=== PATIENT | female | born 2000 | race American Indian/Alaskan Native ===

== ENCOUNTER 2020-12-27 18:08 | Emergency (ER) | payer OTHER, SELFPAY ==
[2020-12-27 18:16] VITALS: BP 145/64; PULSE 91; RESP 14; TEMP 36.3; O2SAT 100; BMI 38.9
--- NOTE | 2020-12-27 18:19 | DI.US.S_ITS ---
PROCEDURE: US PELVIC COMPLETE INDICATIONS: 5 WEEKS , BLEEDING TECHNIQUE: Real-time scanning was performed of the pelvic organs, with image documentation. Additional endovaginal scanning was necessary due to incomplete visualization of the adnexal and endometrial structures by transabdominal scanning. COMPARISON: None. FINDINGS: Uterus: Uterus is normal in size at 7.8 x 5.4 x 4.3 cm. The endometrium measures 18.2 mm in combined thickness. There is no discrete uterine fibroid. Diffusely thickened endometrium is seen without discrete intrauterine gestational sac or endometrial mass. Ovaries: Right ovary measures 3 x 2.2 x 2 cm in size. Left ovary measures 2.4 x 1.9 x 1.9 cm in size. 1 x 0.9 x 0.8 cm corpus luteum is noted in right ovary. Simple cysts are noted in left ovary measures 1.6 x 1.4 x 1.3 cm and 0.7 x 0.5 x 0.6 cm in size. Other: Small amount of free fluid is seen in left adnexa. Physiologic amount of free fluid is seen in posterior cul-de-sac. IMPRESSION: 1. Thickened endometrium without discrete intrauterine gestational sac or endometrial mass. Finding may represent spontaneous versus very early gestation. Follow-up with serial beta HCG level and follow-up pelvic ultrasound is recommended for evaluation of viability. 2. Small amount of fluid is seen in left adnexa and posterior cul-de-sac. 3. Possible corpus luteum in right ovary. Simple cysts in left ovary as above. No definite ectopic gestational sac. Dictated by: Tyson Scott M.D. on 12/27/2020 at 20:53 Approved by: Tyson Scott M.D. on 12/27/2020 at 20:57
[2020-12-27 18:44] LABS: Add Manual Diff / Slide Review NO; Basophils Absolute Auto 0 /uL (0-100); Basophils Percent Auto 0.5 % (0-2); Eosinophils Absolute Auto 300 /uL (0-450); Eosinophils Percent Auto 3.8 % (2-4); Hematocrit 32.3 % (36-46); Hemoglobin 9.9 g/dL (12.0-16.0); Lymphocytes Absolute Auto 2700 /uL (1100-4500); Lymphocytes Percent Auto 39.7 % (25-40); Mean Corpuscular HGB Conc 30.6 % (30-36); Mean Corpuscular Hemoglobin 20.2 PG (26-34); Mean Corpuscular Volume 65.8 fL (80-100); Monocytes Absolute Auto 700 /uL (0-900); Monocytes Percent Auto 9.8 % (3-14); Neutrophils Absolute Auto 3100 /uL (1500-7000); Neutrophils Percent Auto 46.2 % (50-75); Platelet Count 314 X10^3/uL (150-400); Red Cell Distribution Width 18.7 % (11.6-14.8); White Blood Cell Count 6.7 X10^3/uL (4.5-11.0)
[2020-12-27 19:00] LABS: Alanine Aminotransferase 23 IU/L (<35); Albumin 4.2 g/dL (3.5-5.0); Albumin Globulin Ratio 1.1 (1.0-2.8); Alkaline Phosphatase 80 U/L (38-126); Aspartate Aminotransferase 27 IU/L (14-36); Bilirubin Total 0.1 mg/dL (0.2-1.3); Blood Urea Nitrogen 9 mg/dL (7-17); Calcium 9.2 mg/dL (8.4-10.2); Carbon Dioxide 25 mmol/L (22-32); Chloride 108 mmol/L (98-107); Estimated Glomerular Filt Rate > 60.0 mL/min (>60); Globulin 3.7 g/dL (1.7-4.1); Glucose 89 mg/dL (70-100); HEMOLYSIS < 15 (0-50); Potassium 3.9 mmol/L (3.4-5.1); Sodium 140 mmol/L (137-145); Total Protein 7.9 g/dL (6.3-8.2)
[2020-12-27 19:17] LABS: HCG Quantitative /Beta subunit 95.1 mIU/mL
[2020-12-27 19:21] LABS: Microcytosis 2+; Ovalocytes 1+; Platelet Estimate Adequate on smear; Poikilocytosis 1+
[2020-12-27 19:22] LABS: Anisocytosis 1+; Hypochromasia 2+
--- NOTE | 2020-12-27 20:34 | ED.FEMALEGU ---
HPI - Female Genitourinary General Chief complaint: Vaginal Bleeding Stated complaint: 5 WKS BLEEDING SPOTTING Time Seen by Provider: 12/27/20 19:20 Source: patient Mode of arrival: Ambulatory Limitations: no limitations History of Present Illness HPI Narrative: 20F nonsmoker without medical history presents with the chief complaint of minimal vaginal spotting today. She denies pain. She is at 5 weeks. Her date is suggested by LMP. She was seen by the [facility] who confirmed . She is not dizzy, weak, or lightheaded. She's had no dysuria, frequency, or urgency. She's had no fever or chills. She denies discharge. MD Complaint: vaginal bleeding Onset (ago): hour(s) Severity: mild Vaginal discharge: dark blood Patient : Yes Associated symptoms: denies other symptoms Related Data Allergies Allergy/AdvReac Type Severity Reaction Status Date / Time amoxicillin Allergy Verified 12/27/20 18:16 Review of Systems Constitutional Constitutional: Denies chills, Denies fatigue, Denies fever(s), Denies frequent falls, Denies lethargy and Denies weakness Eyes Eyes: Denies change in vision, Denies eye discharge, Denies irritation and Denies loss of vision ENT Ears, Nose, Mouth, and Throat: Denies change in voice, Denies dizziness, Denies neck pain, Denies sore throat and Denies throat swelling Cardiovascular Cardiovascular: Denies chest pain, Denies irregular heart rhythm, Denies lightheadedness, Denies palpitations, Denies dyspnea, Denies dyspnea on exertion and Denies orthopnea Respiratory Respiratory: Denies cough, Denies dyspnea, Denies dyspnea on exertion and Denies wheezing Gastrointestinal Gastrointestinal: Denies abdominal pain, Denies change in bowel habits, Denies diarrhea, Denies nausea and Denies vomiting Genitourinary Genitourinary: Reports abnormal vaginal bleeding Musculoskeletal Musculoskeletal: Denies neck pain and Denies numbness Integumentary/Breasts Skin/Breast: Denies pruritus, Denies erythema, Denies rash and Denies wounds Neurologic Neurologic: Denies behavioral changes, Denies confusion, Denies dizziness, Denies frequent falls, Denies loss of vision, Denies numbness and Denies weakness Psychiatric Psychiatric: Denies anxiety, Denies behavioral changes, Denies confusion, Denies depression, Denies homicidal ideation and Denies suicidal ideation Endocrine Endocrine: Denies fatigue, Denies flushing and Denies palpitations Hematologic/Lymphatic Hematologic/Lymphatic: Denies easy bruising Allergic/Immunologic Allergic/Immunologic: Denies urticaria, Denies throat swelling and Denies wheezing Patient History alcohol intake frequency: holidays/special occasions only Substance Use Type: does not use Exam Narrative Exam Narrative: GENERAL: [20] year old patient appears stated age. Well-nourished, well-developed patient, in mild distress. HEAD: Atraumatic. Normocephalic. EYES: Pupils equal round and reactive. Extraocular motions intact. No scleral icterus. No injection or drainage. ENT: Nose without bleeding, purulent drainage. Throat without erythema, tonsillar hypertrophy or exudate. Airway patent. NECK: Trachea midline. Non tender CARDIOVASCULAR: Regular rate and rhythm without murmurs, gallops, or rubs. RESPIRATORY: Clear to auscultation. Breath sounds equal bilaterally. No wheezes, rales, or rhonchi. GASTROINTESTINAL: Abdomen soft, non-tender, nondistended. EXTREMITIES: No edema or joint tenderness. BACK: Nontender without deformity or crepitance. No flank tenderness. NEURO: AOx3. SKIN: No rash or erythema of visible areas Initial Vital Signs Initial Vital Signs: Vital Signs Temperature 97.4 F L 12/27/20 18:16 Pulse Rate 91 H 12/27/20 18:16 Respiratory Rate 14 12/27/20 18:16 Blood Pressure 145/64 H 12/27/20 18:16 Pulse Oximetry 100 12/27/20 18:16 Course Orders Ordered: ED Orders 12/27/20 18:19 US pelvic complete Stat 12/27/20 18:31 ABO RH Type Stat Complete Blood Count AUTO DIFF Stat Comprehensive Metabolic Panel Stat HCG Quantitative /Beta subunit Stat Vital Signs Vital signs: Vital Signs - 8 hr 12/27/20 20:40 Blood Pressure 123/58 L MDM - Female Genitourinary Lab Data Result diagrams: 12/27/20 18:31 12/27/20 18:31 Labs: Lab Results 12/27/20 12/27/20 12/27/20 Range/Units 18:31 18:31 18:31 WBC 6.7 (4.5-11.0) X10^3/uL RBC 4.90 (4.0-5.2) X10^6/uL Hgb 9.9 L (12.0-16.0) g/dL Hct 32.3 L (36-46) % MCV 65.8 L (80-100) fL MCH 20.2 L (26-34) PG MCHC 30.6 (30-36) % RDW 18.7 H (11.6-14.8) % Plt Count 314 (150-400) X10^3/uL Neut % (Auto) 46.2 L (50-75) % Lymph % (Auto) 39.7 (25-40) % [place] % (Auto) 9.8 (3-14) % Eos % (Auto) 3.8 (2-4) % Baso % (Auto) 0.5 (0-2) % Neut # (Auto) 3100 (0007-1129) /uL Lymph # (Auto) 2700 (1811-3958) /uL [place] # (Auto) 700 (0-900) /uL Eos # (Auto) 300 (0-450) /uL Baso # (Auto) 0 (0-100) /uL Platelet Estimate Adequate on smear RBC Morphology See below Hypochromasia 2+ H Poikilocytosis 1+ H Anisocytosis 1+ H Microcytosis 2+ H Ovalocytes 1+ H Sodium 140 (137-145) mmol/L Potassium 3.9 (3.4-5.1) mmol/L Chloride 108 H (98-107) mmol/L Carbon Dioxide 25 (22-32) mmol/L BUN 9 (7-17) mg/dL Creatinine 0.82 (0.52-1.04) mg/dL Estimated GFR > 60.0 (>60) mL/min BUN/Creatinine Ratio 11.0 (6-22) Glucose 89 (70-100) mg/dL Calcium 9.2 (8.4-10.2) mg/dL Total Bilirubin 0.1 L (0.2-1.3) mg/dL AST 27 (14-36) IU/L ALT 23 (<35) IU/L Alkaline Phosphatase 80 (38-126) U/L Total Protein 7.9 (6.3-8.2) g/dL Albumin 4.2 (3.5-5.0) g/dL Globulin 3.7 (1.7-4.1) g/dL Albumin/Globulin Ratio 1.1 (1.0-2.8) HCG, Quant 95.1 mIU/mL Blood Type O Positive Imaging Data US - [facility] [employer]: Radiologist's Impression: Maribell Kirkpatrick 20 F [address] [id number] ReportSigned Patient: Maribell Kirkpatrick CMR#: [id number]: 2000Acct:[id number]/Sex: 20 / FDate of Service: 12/27/20Loc: EDAccession Number: [id number] Procedure: US pelvic complete Ordering Provider: Herminio Lara D.O. PROCEDURE: US PELVIC COMPLETE INDICATIONS: 5 WEEKS , BLEEDING TECHNIQUE: Real-time scanning was performed of the pelvic organs, with image documentation. Additional endovaginal scanning was necessary due to incomplete visualization of the adnexal and endometrial structures by transabdominal scanning. COMPARISON: None. FINDINGS: Uterus: Uterus is normal in size at 7.8 x 5.4 x 4.3 cm. The endometrium measures 18.2 mm in combined thickness. There is no discrete uterine fibroid. Diffusely thickened endometrium is seen without discrete intrauterine gestational sac or endometrial mass. Ovaries: Right ovary measures 3 x 2.2 x 2 cm in size. Left ovary measures 2.4 x 1.9 x 1.9 cm in size. 1 x 0.9 x 0.8 cm corpus luteum is noted in right ovary. Simple cysts are noted in left ovary measures 1.6 x 1.4 x 1.3 cm and 0.7 x 0.5 x 0.6 cm in size. Other: Small amount of free fluid is seen in left adnexa. Physiologic amount of free fluid is seen in posterior cul-de-sac. IMPRESSION: 1. Thickened endometrium without discrete intrauterine gestational sac or endometrial mass. Finding may represent spontaneous versus very early gestation. Follow-up with serial beta HCG level and follow-up pelvic ultrasound is recommended for evaluation of viability. 2. Small amount of fluid is seen in left adnexa and posterior cul-de-sac. 3. Possible corpus luteum in right ovary. Simple cysts in left ovary as above. No definite ectopic gestational sac. Dictated by: Tyson Scott M.D. on 12/27/2020 at 20:53 Approved by: Tyson Scott M.D. on 12/27/2020 at 20:57 [facility] Narrative Medical decision making narrative: Multiple etiologies for patient's symptoms considered including: [ectopic vs. implantation bleeding vs. threatened vs. other] Patient's symptoms improved over duration of stay with above-stated therapies. Findings and discharge diagnosis discussed with patient/family followed by verbalization of understanding Return precautions discussed with patient/family whom verbalize understanding. Discharge Plan Departure Patient Disposition: Home Clinical Impression: Vaginal bleeding Instructions: DI for Vaginal Bleeding During Activity Restrictions/Additional Instructions: *You have been diagnosed with [vaginal bleeding in 1st trimester. Your ultrasound is reassuring, but we are too early in her to rule out for an ectopic . Close follow-up with your doctor or our OB doctors to trend your lab work will be important] *What to do: *Take medications as directed *Follow up with your primary care provider in 2-3 days, call for an appointment. Let them know you were seen in the Emergency Department and that we ask that you be seen in follow up. Of also given you contact information for our OB doctor on-call who you may call to establish follow-up with *Return to ER if you should have any new, worsening or concerning symptoms, such as [increasing pain, fever over 101 F, bleeding through more than 1 pad per hour or other bothersome symptoms] Referrals: Debbie Sandoval DO [Physician] -
[2020-12-27 20:40] VITALS: BP 123/58
--- NOTE | 2020-12-27 20:48 | PC.NURSE ---
Pt having bright red blood,very smalll amount,only needing to use a panty liner
== END 2020-12-27 20:41 | disposition home or self-care (01) ==
PROVIDERS: Emergency Provider Emergency Medicine
DX: O20.9 Hemorrhage in early pregnancy, unspecified (principal); Z3A.01 Less than 8 weeks gestation of pregnancy
CPT/HCPCS: 36415; 76830; 76856; 80053; 84702; 85025; 86900; 86901; 99283; 99284

== ENCOUNTER → 2020-12-31 13:03 | Outpatient (CLI) | payer OTHER, SELFPAY | PROVIDERS: PCP Family Medicine; Referring Provider Family Medicine; Visit Provider Family Medicine | DX: Z34.01 Encounter for supervision of normal first pregnancy, first trimester (principal) | CPT/HCPCS: 36415; 84702 ==

== ENCOUNTER → 2021-01-03 16:41 | Outpatient (CLI) | payer OTHER, SELFPAY ==
[2021-01-03 19:03] LABS: HCG Quantitative /Beta subunit < 2.4 mIU/mL
== END ==
PROVIDERS: PCP Family Medicine; Referring Provider Family Medicine; Visit Provider Family Medicine
DX: O03.9 Complete or unspecified spontaneous abortion without complication (principal)
CPT/HCPCS: 36415; 84702

== ENCOUNTER 2021-08-03 15:37 | Emergency (ER) | payer OTHER, SELFPAY ==
[2021-08-03 15:47] VITALS: BP 113/70; PULSE 103; RESP 20; O2SAT 98; BMI 46.9
--- NOTE | 2021-08-03 16:16 | ED_ITS ---
HPI - Nausea/Vomiting/Diarrhea <TORI Cesar - Last Filed: 08/03/21 19:02> General Chief complaint: Nausea/Vomiting/Diarrhea Stated complaint: ? food poisoning x1 day Time Seen by Provider: 08/03/21 16:09 Source: patient Mode of arrival: Family Vehicle Limitations: no limitations History of Present Illness HPI Narrative: 20-year-old female presents to the emergency department for nausea and vomiting all day today, she states she can not keep anything down. She reports that she drank alcohol heavily last night and had ?most of a 5th of whiskey.? She denies drinking alcohol every day, states she was recently sober after previously drinking more than average, she states last night she had too much. She reports taking a pill for nausea at home, she does remember its name but reports it is like Pepto-Bismol in a pill. She reports she threw this up and came to the emergency department for nausea control. She denies a fever, reports not knowing if she is , she reports that she is trying to get , she had a miscarriage last year. She denies any dizziness, shortness of breath, vaginal bleeding, chest pain, difficulty breathing, abdominal pain. Related Data Allergies Allergy/AdvReac Type Severity Reaction Status Date / Time amoxicillin Allergy Verified 12/27/20 18:16 Review of Systems <TORI Cesar - Last Filed: 08/03/21 19:02> Review of Systems Narrative: General: denies fever, chills Head/Neck: denies headache, neck pain Eyes: denies visual changes, eye pain Cardio: denies chest pain, palpitations Respiratory: denies shortness of breath, cough GI: denies abdominal pain or diarrhea, endorses nausea and vomiting : denies dysuria, hematuria MSK: denies joint pain, muscle weakness Skin: denies rash, itching Neuro: denies numbness, tingling Patient History <TORI Cesar - Last Filed: 08/03/21 19:02> Social History Smoking Status: Never smoker Smoking Status: Never smoker alcohol intake frequency: 0-2 drinks per day Substance Use Type: does not use Exam <TORI Cesar - Last Filed: 08/03/21 19:02> Narrative Exam Narrative: Independently reviewed vitals signs and nursing notes. General: Awake, alert, nontoxic, no cardiorespiratory distress Head/Neck: Atraumatic, neck full range of motion Eyes: EOMI, conjunctiva normal Nose: nares patent, no rhinorrhea Mouth/Throat: moist mucus membranes, posterior pharynx normal, no oral lesions Cardio: Regular rate and rhythm, no peripheral edema Respiratory: respirations unlabored without wheezing, stridor, or rales. No retractions. GI: Abdomen is soft and nontender to palpation. There is no guarding or rebound. Bowel sounds are normal in all 4 quadrants. There is no mass or organomegaly. MSK: Moves all extremities, neurovascularly intact Skin: Normal capillary refill, no rash Neuro: Normal speech and cognition, normal gait Initial Vital Signs Initial Vital Signs: Vital Signs Pulse Rate 103 H 08/03/21 15:47 Respiratory Rate 20 08/03/21 15:47 Blood Pressure 113/70 08/03/21 15:47 Pulse Oximetry 98 08/03/21 15:47 <Herminio Lara DO - Last Filed: 08/04/21 08:36> Initial Vital Signs Initial Vital Signs: Vital Signs Pulse Rate 103 H 08/03/21 15:47 Respiratory Rate 20 08/03/21 15:47 Blood Pressure 113/70 08/03/21 15:47 Pulse Oximetry 98 08/03/21 15:47 Course <Morenita Wing, [facility] - Last Filed: 08/03/21 19:02> Orders Ordered: Discontinued Medications Al Hydrox/Mg Hydrox/Simethicone 20 ml/ Lidocaine HCl 15 ml 0 ml PO NOW ONE Stop: 08/03/21 17:04 Last Admin: 08/03/21 17:06 Dose: 35 ml Documented by: MAGDA Sodium Chloride (Normal Saline 0.9%) 1,000 mls @ 1,000 mls/hr IV BOLUS ONE Stop: 08/03/21 17:13 Last Infusion: 08/03/21 17:46 Dose: 0 mls/hr Documented by: Admin: 08/03/21 16:19 Dose: 1,000 mls/hr Documented by: MAGDA Ondansetron HCl (Ondansetron 4 Mg/2 Ml Inj) 4 mg IV NOW ONE Stop: 08/03/21 16:17 Last Admin: 08/03/21 16:21 Dose: 4 mg Documented by: MAGDA Ondansetron HCl (Ondansetron 4 Mg Odt Prepack) 1 bottle MISC SEEINSTR ONE Stop: 08/03/21 18:31 Last Admin: 08/03/21 18:40 Dose: 1 bottle Documented by: MAGDA Vital Signs Vital signs: Vital Signs - 8 hr 08/03/21 15:47 08/03/21 18:22 08/03/21 18:27 Pulse Rate 103 H 87 85 Respiratory Rate 20 Blood Pressure 113/70 125/67 125/67 Pulse Oximetry 98 100 100 <Herminio Lara DO - Last Filed: 08/04/21 08:36> Orders Ordered: Discontinued Medications Al Hydrox/Mg Hydrox/Simethicone 20 ml/ Lidocaine HCl 15 ml 0 ml PO NOW ONE Stop: 08/03/21 17:04 Last Admin: 08/03/21 17:06 Dose: 35 ml Documented by: MAGDA Sodium Chloride (Normal Saline 0.9%) 1,000 mls @ 1,000 mls/hr IV BOLUS ONE Stop: 08/03/21 17:13 Last Infusion: 08/03/21 17:46 Dose: 0 mls/hr Documented by: Admin: 08/03/21 16:19 Dose: 1,000 mls/hr Documented by: MAGDA Ondansetron HCl (Ondansetron 4 Mg/2 Ml Inj) 4 mg IV NOW ONE Stop: 08/03/21 16:17 Last Admin: 08/03/21 16:21 Dose: 4 mg Documented by: MAGDA Ondansetron HCl (Ondansetron 4 Mg Odt Prepack) 1 bottle MISC SEEINSTR ONE Stop: 08/03/21 18:31 Last Admin: 08/03/21 18:40 Dose: 1 bottle Documented by: MAGDA Vital Signs Vital signs: Vital Signs - 8 hr 08/03/21 15:47 08/03/21 18:22 08/03/21 18:27 Pulse Rate 103 H 87 85 Respiratory Rate 20 Blood Pressure 113/70 125/67 125/67 Pulse Oximetry 98 100 100 MDM - Nausea/Vomiting/Diarrhea <TORI Cesar - Last Filed: 08/03/21 19:02> Lab Data Result diagrams: 08/03/21 16:55 08/03/21 16:55 Labs: Lab Results 08/03/21 08/03/21 Range/Units 16:55 16:55 WBC 9.8 (4.5-11.0) X10^3/uL RBC 5.21 H (4.0-5.2) X10^6/uL Hgb 11.1 L (12.0-16.0) g/dL Hct 35.9 L (36-46) % MCV 68.8 L (80-100) fL MCH 21.3 L (26-34) PG MCHC 30.9 (30-36) % RDW 17.6 H (11.6-14.8) % Plt Count 362 (150-400) X10^3/uL Sodium 146 H (137-145) mmol/L Potassium 3.6 (3.4-5.1) mmol/L Chloride 109 H (98-107) mmol/L Carbon Dioxide 23 (22-32) mmol/L BUN 8 (7-17) mg/dL Creatinine 0.65 (0.52-1.04) mg/dL Estimated GFR > 60.0 (>60) mL/min BUN/Creatinine Ratio 12.3 (6-22) Glucose 96 (70-100) mg/dL Calcium 9.1 (8.4-10.2) mg/dL HCG, Quant < 2.4 mIU/mL MDM Narrative Medical decision making narrative: 20-year-old female presents to the emergency department after drinking ?most of a 1/5th of whiskey last night, for nausea and vomiting today. She states she has vomited 8 times, denies any diarrhea, fever, regular alcohol use, withdrawal symptoms, dizziness, passing out, or injury. She reports that she was sober for a period of time and just had too much to drink last night. Her test was negative, no signs of infection or acute cause of her nausea and vomiting today. Her exam is reassuring, she does not have pain anywhere, was markedly improved after receiving 1 L fluids and some Zofran. She was educated on drinking heavily and the risks to her health, she also endorses trying to get , I discussed with her the risks of drinking alcohol during and she states she understands and does not want to feel like this again. I recommended that she follow-up with her primary care provider in the next couple of days if she is not feeling well, I also encouraged her to not drink this much ever again. Patient is appropriate and amenable to discharge home. Vital signs are stable on repeat examination is unremarkable. Patient has been informed of results. Patient has been given strict return to ER precautions for any new or worsening symptoms. Patient understands to follow up closely with outpatient providers as instructed. Patient understands plan and agrees to discharge home. All questions and concerns answered at this time. <Herminio Lara, DO - Last Filed: 08/04/21 08:36> Lab Data Labs: Lab Results 08/03/21 08/03/21 Range/Units 16:55 16:55 WBC 9.8 (4.5-11.0) X10^3/uL RBC 5.21 H (4.0-5.2) X10^6/uL Hgb 11.1 L (12.0-16.0) g/dL Hct 35.9 L (36-46) % MCV 68.8 L (80-100) fL MCH 21.3 L (26-34) PG MCHC 30.9 (30-36) % RDW 17.6 H (11.6-14.8) % Plt Count 362 (150-400) X10^3/uL Sodium 146 H (137-145) mmol/L Potassium 3.6 (3.4-5.1) mmol/L Chloride 109 H (98-107) mmol/L Carbon Dioxide 23 (22-32) mmol/L BUN 8 (7-17) mg/dL Creatinine 0.65 (0.52-1.04) mg/dL Estimated GFR > 60.0 (>60) mL/min BUN/Creatinine Ratio 12.3 (6-22) Glucose 96 (70-100) mg/dL Calcium 9.1 (8.4-10.2) mg/dL HCG, Quant < 2.4 mIU/mL Discharge Plan Departure Patient Disposition: Home Clinical Impression: Acute vomiting Hangover Qualifiers: Complication of substance-induced condition: uncomplicated Qualified Code(s): F10.120 - Alcohol abuse with intoxication, uncomplicated Instructions: DI for Nausea -- Adult Activity Restrictions/Additional Instructions: *You have been diagnosed with nausea and vomiting most likely related to a hangover. Please do not drink this much ever again, it is not good for you. Your test was negative, please use Zofran as needed for nausea and vomiting, hydrate with electrolyte solutions, and get some rest tonight without alcohol. *What to do: *Please continue to take your regular medications as directed. Your given a prepack of Zofran you may use 1 pill every 4-6 hours as needed for nausea. [ ] New medication prescriptions sent to your pharmacy: [ ] [ ] New medication written as a paper prescription [ ] No new medications given *Please follow up with your primary care provider in 2-3 days, call for an appointment. Let them know you were seen in the Emergency Department and that we ask that you be seen in follow up. We will electronically transmit a record of today's note if your PCP is in our system *If you do not have a primary care provider please contact the [facility] Resource line at [phone]. They will ask some questions about your medical history and help get you set up with a doctor in the community. *Return to Emergency Department if you should have any new, worsening or concerning symptoms, such as [fever greater than 101F, chills, worsening pain, persistent vomiting or other bothersome symptoms] Referrals: Debbie Sandoval DO [Primary Care Provider] - <Herminio Lara DO - Last Filed: 08/04/21 08:36> [facility] ED Attending Elisabetature Attestation: I was immediately available in the department for consultation. This documentation has been reviewed and I agree with assessment and plan. Supervised by Herminio Lara DO
[2021-08-03] MEDS: SODIUM CHLORIDE 0.9% 1,000 ML 1000 ML IV (16:19)
[2021-08-03] MEDS: ONDANSETRON 4 MG/2 ML INJ IV (16:21)
[2021-08-03] MEDS: MAG HYDROX/ALUMINUM/SIMETH SUS 20 ML, LIDOCAINE VISCOUS 2% 15 ML PO (17:06)
[2021-08-03 17:10] LABS: Hematocrit 35.9 % (36-46); Hemoglobin 11.1 g/dL (12.0-16.0); Mean Corpuscular HGB Conc 30.9 % (30-36); Mean Corpuscular Hemoglobin 21.3 PG (26-34); Mean Corpuscular Volume 68.8 fL (80-100); Platelet Count 362 X10^3/uL (150-400); Red Blood Cell Count 5.21 X10^6/uL (4.0-5.2); Red Cell Distribution Width 17.6 % (11.6-14.8); White Blood Cell Count 9.8 X10^3/uL (4.5-11.0)
[2021-08-03 17:24] LABS: BUN Creatinine Ratio 12.3 (6-22); Blood Urea Nitrogen 8 mg/dL (7-17); Calcium 9.1 mg/dL (8.4-10.2); Carbon Dioxide 23 mmol/L (22-32); Chloride 109 mmol/L (98-107); Estimated Glomerular Filt Rate > 60.0 mL/min (>60); Glucose 96 mg/dL (70-100); HEMOLYSIS < 15 (0-50); Potassium 3.6 mmol/L (3.4-5.1); Sodium 146 mmol/L (137-145)
[2021-08-03 17:41] LABS: HCG Quantitative /Beta subunit < 2.4 mIU/mL
[2021-08-03 18:22] VITALS: BP 125/67; PULSE 87; O2SAT 100
[2021-08-03 18:27] VITALS: BP 125/67; PULSE 85; O2SAT 100
[2021-08-03] MEDS: ONDANSETRON 4 MG ODT PREPACK 1 BOTTLE MISC (18:40)
== END 2021-08-03 18:50 | disposition home or self-care (01) ==
PROVIDERS: Emergency Provider Nurse Practitioner Critical Care Medicine; PCP Family Medicine
DX: R11.2 Nausea with vomiting, unspecified (principal); F10.120 Alcohol abuse with intoxication, uncomplicated
CPT/HCPCS: 36415; 80048; 84702; 85027; 96361; 96374; 99284; J2405

== ENCOUNTER → 2023-04-27 09:54 | Outpatient (CLI) | payer OTHER, SELFPAY ==
--- NOTE | 2023-04-27 09:57 | DI.US.S_ITS ---
PROCEDURE: US OB <= 14 WEEKS FETUS INDICATIONS: DATES OUTSIDE/PRIOR DATING DATA: Last menstrual period (LMP): 02/24/2023 LMP-based estimated date of delivery (MALCOM): 12/01/2023 First dating scan (date and location): 04/27/2023 Estimated date of delivery (MALCOM) from first dating scan: 11/30/2023 TECHNIQUE: Real-time scanning was performed of the fetus and maternal pelvic organs, with image documentation. Endovaginal scanning was also performed to better visualize the fetus and maternal ovaries. COMPARISON: None. FINDINGS: Embryo: Single intrauterine gestational sac is seen with yolk sac noted. [place]-rump length measures 2.3 cm. Estimated gestational age is 9 weeks, 0 day. Heart rate: 180 beats per minute. Maternal organs: Ovaries are visualized and are within normal limits. IMPRESSION: Single live intrauterine gestation with fetus and yolk sac seen. heart rate is 180 beats per minute. Estimated gestational age based on current study is 9 weeks, 0 day. We strive to produce accurate, complete, and clear reports of imaging services. To assist us in improving patient care, this report was composed using standard report templates and voice recognition software. Therefore, it may contain abnormal punctuation, insertions and/or omissions. Occasional wrong-word or sound-alike substitutions may occur. Though we review the report and make efforts to correct it, we do recommend that the report be read carefully in proper context to recognize any text inaccuracies. Dictated by: Tyson Scott M.D. on 04/27/2023 at 16:18 Approved by: Tyson Scott M.D. on 04/27/2023 at 16:24
== END ==
PROVIDERS: PCP Family Medicine; Referring Provider Family Medicine; Visit Provider Family Medicine
DX: Z36.87 Encounter for antenatal screening for uncertain dates (principal); Z3A.09 9 weeks gestation of pregnancy
CPT/HCPCS: 76801; 76817

== ENCOUNTER → 2023-06-25 15:55 | Outpatient (CLI) | payer OTHER, SELFPAY ==
[2023-06-25 16:24] LABS: Appearance Urine UA SL CLOUDY; Bilirubin Urine UA NEGATIVE (NEGATIVE); Color Urine UA YELLOW; Glucose Urine UA NEGATIVE (Negative); Ketones Urine UA NEGATIVE (NEGATIVE); Leukocyte Esterase Urine UA TRACE (NEGATIVE); Nitrite Urine UA NEGATIVE (Negative); Occult Blood Urine UA NEGATIVE (Negative); Protein Urine UA NEGATIVE (Negative); Specific Gravity Urine UA 1.025 (1.000-1.035); Urobilinogen Urine UA 0.2 E.U./dL (0.2)
[2023-06-25 16:26] LABS: Add Manual Diff / Slide Review NO; Basophils Absolute Auto 0 /uL (0-100); Basophils Percent Auto 0.4 % (0-2); Eosinophils Absolute Auto 200 /uL (0-450); Eosinophils Percent Auto 2.4 % (2-4); Hematocrit 39.4 % (36-46); Hemoglobin 13.3 g/dL (12.0-16.0); Lymphocytes Absolute Auto 2200 /uL (1100-4500); Lymphocytes Percent Auto 24.9 % (25-40); Mean Corpuscular HGB Conc 33.7 % (30-36); Mean Corpuscular Hemoglobin 26.4 PG (26-34); Mean Corpuscular Volume 78.4 fL (80-100); Monocytes Absolute Auto 700 /uL (0-900); Neutrophils Absolute Auto 5700 /uL (1500-7000); Neutrophils Percent Auto 64.3 % (50-75); Platelet Count 257 X10^3/uL (150-400); Red Blood Cell Count 5.02 X10^6/uL (4.0-5.2); Red Cell Distribution Width 20.5 % (11.6-14.8); White Blood Cell Count 8.9 X10^3/uL (4.5-11.0); pH Urine UA 5.5 (4.5-8.0)
[2023-06-25 16:33] LABS: Bacteria Urine Moderate (10-30); Culture Indicated Urine Specimen Cultured; RBC Urine 0-1/HPF (0-5/HPF); Squamous Epithelial Cell Urine 1-5 /HPF (0-5/HPF); WBC Urine 5-10/HPF (0-5/HPF)
[2023-06-25 16:37] LABS: Anisocytosis 1+
[2023-06-26 09:09] LABS: RPR Screen Non Reactive (Non Reactive); Varicella IgG Antibody 1008 index (Immune >165)
[2023-06-27 19:20] LABS: Hepatitis B Surface Antigen NEGATIVE s/c (NEGATIVE); Rubella Antibody IgG 41.7 IU/mL (>15)
[2023-06-27 19:33] LABS: HIV 1 & 2 Ab/Ag 4th Gen Combo NEGATIVE (NEGATIVE); Hep C Virus Ab w/Reflex Quant NEGATIVE s/c (NEGATIVE)
== END ==
PROVIDERS: PCP Family Medicine; Referring Provider Family Medicine; Visit Provider Family Medicine
DX: Z34.80 Encounter for supervision of other normal pregnancy, unspecified trimester (principal)
CPT/HCPCS: 36415; 80055; 81003; 81015; 86787; 86803; 86850; 86900; 86901; 87086; 87389

== ENCOUNTER → 2023-07-02 12:10 | Outpatient (CLI) | payer OTHER, SELFPAY ==
--- NOTE | 2023-07-02 12:11 | DI.US.S_ITS ---
PROCEDURE: OB >= 14 WEEKS FETUS INDICATIONS: GROWTH OUTSIDE/PRIOR DATING DATA: Last menstrual period (LMP): 02/24/2023. LMP-based estimated date of delivery (MALCOM): 12/01/2023. First dating scan (date and location): 04/27/2023. Estimated date of delivery (MALCOM) from first dating scan: 11/30/2023. TECHNIQUE: Real-time scanning was performed of the fetus, with image documentation and biometric measurements. Endovaginal scanning: Not performed COMPARISON: [facility], OB <= 14 WEEKS FETUS, 04/27/2023, 10:24. FINDINGS: General: A single living intrauterine gestation is present. Presentation: Breech. Placenta: Placental position is anterior , without previa. Amniotic fluid index: 13.4 cm, normal range is 5-24 cm. Single deepest vertical pocket is 3.8 cm. heart rate: 152 beats per minute. Maternal cervical canal: 3.8 cm long. Normal lower limit is 2.5 cm. biometrics: Biparietal diameter: 4.1 cm 18 weeks 2 days Head circumference: 15.9 cm 18 weeks 5 days Abdominal circumference: 12.9 cm 18 weeks 3 days Femur length: 2.8 cm 18 weeks 3 days estimated gestational age: 18 weeks 2 days Composite gestational age from present scan: 18 weeks 3 days Estimated weight and percentile: 243 g, 59th percentile Anatomic survey: Neuro: Ventricles are non-dilated at less than 10 mm. Cisterna magna is normal at 3-11 mm. Cerebellum is normal in size and morphology. Nuchal skin fold: Normal at less than 6 mm between 14-21 weeks gestational age. Face: Nose and lips, facial profile, orbits not well visualized Spine: No evidence for spina bifida. Heart: Four-chamber cardiac view and ventricular outflow tracts not well visualized Diaphragm: Diaphragm is intact. Stomach: Left-sided stomach is present. Kidneys: No hydronephrosis. Normal is less than 5 mm in 2nd trimester, less than 7 mm in 3rd trimester. Cord: 3-vessel cord has orthotopic insertion. Bladder: Normal in size. Extremities: All 4 extremities identified. IMPRESSION: 1. Single living intrauterine . 2. nose/lips, profile, orbits, four-chamber cardiac view, ventricular outflow tracts not well visualized. Attention on follow-up recommended. 3. Otherwise, visualized anatomy is within normal limits. We strive to produce accurate, complete, and clear reports of imaging services. To assist us in improving patient care, this report was composed using standard report templates and voice recognition software. Therefore, it may contain abnormal punctuation, insertions and/or omissions. Occasional wrong-word or sound-alike substitutions may occur. Though we review the report and make efforts to correct it, we do recommend that the report be read carefully in proper context to recognize any text inaccuracies. Dictated by: Joe Ford M.D. on 07/03/2023 at 10:43 Approved by: Joe Ford M.D. on 07/03/2023 at 10:48
== END ==
PROVIDERS: PCP Family Medicine; Referring Provider Family Medicine; Visit Provider Family Medicine
DX: Z34.82 Encounter for supervision of other normal pregnancy, second trimester (principal); Z3A.18 18 weeks gestation of pregnancy
CPT/HCPCS: 76811

== ENCOUNTER → 2023-07-15 11:10 | Outpatient (CLI) | payer OTHER, SELFPAY ==
--- NOTE | 2023-07-15 11:11 | DI.US.S_ITS ---
PROCEDURE: US OB FOLLOW UP INDICATIONS: ANATOMY FOLLOW UP OUTSIDE/PRIOR DATING DATA: Last menstrual period (LMP): 02/24/2023. LMP-based estimated date of delivery (MALCOM): 12/01/2023. First dating scan (date and location): 04/27/2020. Estimated date of delivery (MALCOM) from first dating scan: 12/01/2023. TECHNIQUE: Real-time scanning was performed of the fetus, with image documentation and biometric measurements. COMPARISON: [facility] OB >= 14 WEEKS FETUS, 07/02/2023, 12:21. [facility] OB <= 14 WEEKS FETUS, 04/27/2023, 10:24. FINDINGS: General: A single living intrauterine gestation is present. Presentation: Breech. Placenta: Placental position is anterior right , without previa. Amniotic fluid index: 16.2 cm, normal range is 5-24 cm. Single deepest vertical pocket is 5.8 cm. heart rate: 155 beats per minute. Maternal cervical canal: 3.5 cm long. Normal lower limit is 2.5 cm. Clinically estimated gestational age: 20 weeks 1 day Other: face including orbits, nose, lips and facial profile are normal. 4-chambered heart and ventricular outflow tracts views are normal. IMPRESSION: 1. A single living intrauterine gestation is again demonstrated. 2. Normal facial structures and heart. 3. Limited examination due to patient's body habitus. We strive to produce accurate, complete, and clear reports of imaging services. To assist us in improving patient care, this report was composed using standard report templates and voice recognition software. Therefore, it may contain abnormal punctuation, insertions and/or omissions. Occasional wrong-word or sound-alike substitutions may occur. Though we review the report and make efforts to correct it, we do recommend that the report be read carefully in proper context to recognize any text inaccuracies. Dictated by: Gaudencio Puga M.D. on 07/15/2023 at 14:24 Approved by: Gaudencio Puga M.D. on 07/15/2023 at 14:31
== END ==
PROVIDERS: PCP Family Medicine; Referring Provider Family Medicine; Visit Provider Family Medicine
DX: Z34.80 Encounter for supervision of other normal pregnancy, unspecified trimester (principal)
CPT/HCPCS: 76816

== ENCOUNTER → 2023-09-20 15:35 | Outpatient (CLI) | payer OTHER, SELFPAY ==
[2023-09-20 17:15] LABS: Add Manual Diff / Slide Review NO; Basophils Absolute Auto 0 /uL (0-100); Basophils Percent Auto 0.4 % (0-2); Eosinophils Absolute Auto 200 /uL (0-450); Eosinophils Percent Auto 1.8 % (2-4); Hematocrit 33.9 % (36-46); Hemoglobin 11.6 g/dL (12.0-16.0); Lymphocytes Absolute Auto 1800 /uL (1100-4500); Lymphocytes Percent Auto 16.8 % (25-40); Mean Corpuscular HGB Conc 34.4 % (30-36); Mean Corpuscular Hemoglobin 29.7 PG (26-34); Mean Corpuscular Volume 86.3 fL (80-100); Monocytes Absolute Auto 900 /uL (0-900); Neutrophils Absolute Auto 8000 /uL (1500-7000); Platelet Count 229 X10^3/uL (150-400); Red Blood Cell Count 3.92 X10^6/uL (4.0-5.2); Red Cell Distribution Width 15.3 % (11.6-14.8)
[2023-09-20 17:45] LABS: GTT (PREG) 1 Hour PP 50gm Dose 96 mg/dL (76-139)
== END ==
PROVIDERS: PCP Family Medicine; Referring Provider Family Medicine; Visit Provider Family Medicine
DX: Z34.80 Encounter for supervision of other normal pregnancy, unspecified trimester (principal)
CPT/HCPCS: 36415; 82950; 85025; 86850

== ENCOUNTER 2023-10-20 17:49 | Observation (INO) | payer OTHER, SELFPAY ==
--- NOTE | 2023-10-20 19:00 | P.TNLD_ITS ---
Visit Information Visit Information Date of evaluation: 10/20/23 On-call OB Provider: Alayna Grimes Comments/Additional reasons for admission: 22yo at 34+0wks presented to triage for diagnosis of influenza and decreased movement. Was diagnosed with influenza at the [facility] and given rx for tamiflu, though she hasn't picked it up yet. Vital Signs Vital Signs: BP 135/75, HR 126, T 37.6, SpO2 99% PFSH Surgical History (Updated 04/30/23 @ 11:05 by La Nena David, RN) No pertinent past surgical history Family History (Updated 04/30/23 @ 11:09 by La Nena David, KRYSTLE) Mother Hypothyroidism Rheumatoid arthritis Grandfather Diabetes mellitus Congestive heart failure Father Family estrangement Grandmother Breast cancer Family/Other Breast cancer Social History marital status: unmarried,living together number of children: 0 household members: significant other and family lives independently: Yes caregiver/support person: No housing: house pets and animals: No education level: high school (11th grade) occupational status: unemployed current occupational exposures/hazards: No special bon needs: No travel history: over 6 months ago seatbelt use: always water heater temp set < 120 deg: Yes working smoke detector in home: Yes fire extinguisher in home: Yes carbon monox detector in home: Yes firearms in home: Yes do you feel safe at home: Yes Smoking Status: Former smoker (briefly as a teenager) Tobacco: How many years used: 1 second hand exposure: No alcohol intake: former (very rarely when not ) substance use type: does not use during the past year weight has: remained stable well-balanced diet: about half the time daily servings fruits/ve-4 caffeine: Yes (2-3 soft drinks/day) Type(s) of exercise: none Review of Systems Review of Systems ROS: Yes All systems reviewed with the patient and are negative except as otherwise documented Evaluation Evaluation Baseline heart rate: 160 Variability: Moderate (11-25) monitor accelerations: Present Monitor Decelerations: Absent Contraction Frequency (minutes): 0 Diagnosis, Plan/Disposition Final Diagnosis (1) Influenza: Status: Acute (2) Encounter for supervision of other normal , unspecified trimester: Status: Acute Plan/Disposition Plan: 22yo at 34+0wks with newly diagnosed influenza infection and decreased movement. Pt received 1L LR IV as she had reported poor oral intake. During her triage visit, tacycardia noted with primarily moderate variability and accels, no decels. Pt also given first dose of tamiflu. -encouraged to fill her rx for tamiflu tomorrow and complete course -reviewed precautions and reasons to return to care -f/u in clinic as scheduled OB Disposition: home
[2023-10-20] MEDS: LACTATED RINGERS 1,000 ML 1000 ML IV (19:18)
[2023-10-20] MEDS: OSELTAMIVIR 75 MG CAPSULE PO (19:18)
== END 2023-10-20 21:15 | disposition home or self-care (01) ==
LOC: LABOR 17:51
PROVIDERS: Admitting Provider Family Medicine; PCP Family Medicine; Referring Provider Family Medicine; Visit Provider Family Medicine
DX: O36.8130 Decreased fetal movements, third trimester, not applicable or unspecified (principal); O26.893 Other specified pregnancy related conditions, third trimester; J11.1 Influenza due to unidentified influenza virus with other respiratory manifestations; Z3A.34 34 weeks gestation of pregnancy
CPT/HCPCS: 59025; 59050; 96360; G0378; G0379

== ENCOUNTER → 2023-11-05 12:26 | Outpatient (CLI) | payer OTHER, SELFPAY ==
[2023-11-06 16:15] LABS: Strep Grp B PCR NEG for Grp B Strep
== END ==
PROVIDERS: PCP Family Medicine; Visit Provider Family Medicine
DX: Z34.80 Encounter for supervision of other normal pregnancy, unspecified trimester (principal); Z3A.36 36 weeks gestation of pregnancy
CPT/HCPCS: 87653

== ENCOUNTER 2023-11-13 08:21 | Inpatient (IN) | payer OTHER, SELFPAY ==
[2023-11-13 08:47] VITALS: BP 127/76
[2023-11-13 10:58] LABS: Add Manual Diff / Slide Review NO; Basophils Absolute Auto 0 /uL (0-100); Basophils Percent Auto 0.2 % (0-2); Eosinophils Absolute Auto 100 /uL (0-450); Eosinophils Percent Auto 1.2 % (2-4); Hematocrit 39.9 % (36-46); Hemoglobin 13.5 g/dL (12.0-16.0); Lymphocytes Absolute Auto 2200 /uL (1100-4500); Lymphocytes Percent Auto 20.4 % (25-40); Mean Corpuscular HGB Conc 33.7 % (30-36); Mean Corpuscular Hemoglobin 29.8 PG (26-34); Mean Corpuscular Volume 88.3 fL (80-100); Monocytes Absolute Auto 900 /uL (0-900); Monocytes Percent Auto 8.1 % (3-14); Neutrophils Absolute Auto 7600 /uL (1500-7000); Neutrophils Percent Auto 70.1 % (50-75); Platelet Count 221 X10^3/uL (150-400); Red Blood Cell Count 4.52 X10^6/uL (4.0-5.2); Red Cell Distribution Width 14.5 % (11.6-14.8); White Blood Cell Count 10.8 X10^3/uL (4.5-11.0)
--- NOTE | 2023-11-13 11:23 | PM.OBHP.IH.1 ---
OB HPI Date/Time Date of admission: 11/13/23 Date Patient Seen: 11/13/23 History of Present Condition Chief complaint: LABOR MALCOM Calculator Estimated Delivery Date Method Current WG Current Estimate 12/01/23 Manual 37w 3d Final MALCOM - YOJANA Other Estimates 12/01/23 LMP (Certain) 37w 3d 11/30/23 Ultrasound #1 37w 4d Estimated Gestational Age (weeks): 37w3d : 3 Para: 0 Narrative: 22yo at 37w3d here due to LOF. Pt reports feeling a gush of fluid around 7:15am. She had some vaginal spotting when she arrived at L&D, not other significant bleeding. She started having light contractions after the gush of fluid. She continues to feel her baby move regularly. The pt had no significant complications with her . care: good care, initiated at week # (12) and pounds weight gain (26) Dating criteria OB: LMP confirmed by 1st trimester US Ultrasounds: normal 1st trimester US and normal mid trimester US Obstetrical complications: none Medical complications OB: none Preadmission Labs Last OB Lab Results: Blood Type O Positive 11/13/23 10:15 Antibody Screen Negative 11/13/23 10:15 Hematocrit 39.9 % (36-46) 11/13/23 10:15 Hemoglobin 13.5 g/dL (12.0-16.0) 11/13/23 10:15 Hepatitis B Surface Antigen Negative s/c (NEGATIVE) 06/25/23 15:59 Hepatitis C Antibody Negative s/c (NEGATIVE) 06/25/23 15:59 Rubella Antibody 41.7 IU/mL (>15) 06/25/23 15:59 Varicella-Zoster IgG Antibody 1008 index (Immune >165) 06/25/23 15:59 Glucose 1 Hour 96 mg/dL (76-139) 09/20/23 17:00 Group B Streptococcus (PCR) Neg for grp b strep 11/05/23 12:26 -: Urine: negative External Labs -: Urine: negative Prior (ies) Past Pregnancies Del. Date GA/Weeks Labor Lgth Wt Sex Route Outcome Anesthesia Place Delv Breastfeed Preg Comp Name 12/09/20 6 spontaneous 10/24/22 5-6 spontaneous Delivery Date: 12/09/20 Last Updated by: La Nena David RN resolved spontaneously, heavy bleeding Evaluation Evaluation Baseline heart rate: 125 Variability: Moderate (11-25) monitor accelerations: Present Monitor Decelerations: Absent Contraction Frequency (minutes): 5 Uterine Contraction Intensity: Mild Status: Category l PFSH Surgical History (Updated 04/30/23 @ 11:05 by La Nena David RN) No pertinent past surgical history Family History (Updated 04/30/23 @ 11:09 by La Nena David RN) Mother Hypothyroidism Rheumatoid arthritis Grandfather Diabetes mellitus Congestive heart failure Father Family estrangement Grandmother Breast cancer Family/Other Breast cancer Social History marital status: unmarried,living together number of children: 0 household members: significant other and family lives independently: Yes caregiver/support person: No housing: house pets and animals: No education level: high school (11th grade) occupational status: unemployed current occupational exposures/hazards: No special bon needs: No travel history: over 6 months ago seatbelt use: always water heater temp set < 120 deg: Yes working smoke detector in home: Yes fire extinguisher in home: Yes carbon monox detector in home: Yes firearms in home: Yes do you feel safe at home: Yes Smoking Status: Former smoker (briefly as a teenager) Tobacco: How many years used: 1 second hand exposure: No alcohol intake: former (very rarely when not ) substance use type: does not use during the past year weight has: remained stable well-balanced diet: about half the time daily servings fruits/ve-4 caffeine: Yes (2-3 soft drinks/day) Type(s) of exercise: none Meds Home Medications and Allergies Home Medications Medication Instructions Recorded Confirmed Type cholecalciferol (vitamin D3) 25 25 mcg PO DAILY 04/30/23 11/13/23 History mcg (1,000 unit) capsule mecobalamin (vitamin B12) 1,000 1,000 mcg PO DAILY 04/30/23 11/13/23 History mcg lozenges vitamin-ferrous sulfate tab PO 04/30/23 11/12/23 History 27 mg iron-folic acid 0.8 mg tablet Allergies Allergy/AdvReac Type Severity Reaction Status Date / Time Penicillins Allergy Intermediate Hives Verified 11/12/23 15:03 amoxicillin Allergy Verified 11/12/23 15:03 OB Exam Resp Effort & Inspection: normal respiratory effort Auscultation: clear to auscultation bilaterally Cardio Rate: regular rate Rhythm: regular rhythm Heart Sounds: S1 normal, S2 normal and no murmurs GI Inspection: non-distended Palpation: Yes soft and No tender Presentation: vertex Objective Labs 11/13/23 10:15 Labs: Laboratory Results - last 24 hr 11/13/23 10:15 WBC 10.8 RBC 4.52 Hgb 13.5 Hct 39.9 MCV 88.3 MCH 29.8 MCHC 33.7 RDW 14.5 Plt Count 221 Neut % (Auto) 70.1 Lymph % (Auto) 20.4 L [place] % (Auto) 8.1 Eos % (Auto) 1.2 L Baso % (Auto) 0.2 Neut # (Auto) 7600 H Lymph # (Auto) 2200 [place] # (Auto) 900 Eos # (Auto) 100 Baso # (Auto) 0 Assessment and Plan Assessment and Plan Assessment and Plan narrative: 22yo at 37w3d here with SROM at home. GBS negative, Rh positive. No complications with . - Expectant management, anticipate - Discussed pitocin, pt does not desire initiation at this point, will plan to start at 12hrs of rupture if without consistent contractions - GBS negative, no prophylaxis indicated - Pt does not desire epidural, natural methods for pain control - FHT reassuring, okay for intermittent monitoring
[2023-11-13] MEDS: OXYTOCIN PREMIX 30 UNIT/500 ML PLAST..BAG IV (20:34)
[2023-11-13] MEDS: LACTATED RINGERS 1,000 ML 100 ML IV (20:34)
--- NOTE | 2023-11-14 03:56 | PM.OBPNLAB ---
Date/Time Date Patient Seen: 11/14/23 Time Patient Seen: 03:56 Pain Control Pain control: tolerating well Pelvic Exam Dilation (cm): 3 Effacement (%): 90 station: -2 Amniotic membrane status: Ruptured Contractions Contractions on admission: none Monitor mode: Internal Pitocin rate (mU/min): 6 Contraction frequency (min): 2 Contraction duration (min): 1 Contraction pattern: Regular Contraction intensity: Strong/Firm Intrauterine tone measurement: 180 Status status: Category l Heart Rate Baseline: 120 Monitor Accelerations: Present Monitor Decelerations: Early Monitor Variability: Moderate Assessment and Plan Comments: 22yo at 37w4d here with SROM at home. GBS negative, Rh positive. No complications with . Pitocin initiated after 12hrs of rupture due to on significant contractions. Due to difficulty monitoring, FSE and IUPC placed to allow for more effective and safer titration of pitocin. - Anticipate - Continue pitocin, titrate as tolerated - GBS negative, no prophylaxis indicated - Pt does not desire epidural, natural methods for pain control - FHT reassuring
[2023-11-14] MEDS: fentaNYL 100 MCG/2 ML INJ IV (09:24)
--- NOTE | 2023-11-14 13:43 | P.PCNOB_ITS ---
Labor & Delivery Delivery date: 11/14/23 Intrapartal Events: None Cervical ripening method: none Induction method: per pitocin protocol Delivery monitor: internal FHT and internal uterine Route of delivery: Episiotomy description: None L&D Laceration Description: Labial Quantitative Blood Loss: 400 Anesthesia Type: None Complications: None Narrative: PROCEDURE: at 37w3d presented with PROM and was admitted to Labor and Delivery. The patient progressed through the 1st stage over 29 hours. ROM occured at 7:15 on 11/13 with clear fluid. Pain was controlled with natural methods. Pitocin was initiated after labor did not begin after 12hrs of rupture. IUPC and FSE were ultimately placed to allow for titration of the pitocin. Pt attempted nitrous without benefit. She received one dose of Fentanyl. The patient progressed through the 2nd stage over 8 minutes and delivered a viable female infant with APGARs 9/9 at 12:08 via without complications. The cord was cut and clamped after it stopped pulsating. The placenta delivered with gentle cord traction, and appeared complete. The perineum and vagina were inspected with left labial laceration repaired with 2-O Chromic. Needle and sponge counts were correct.? The vagina was inspected and no items were left in situ. Maribell was doing well with Verónica, her and her partner at bedside. PREPROCEDURE DIAGNOSIS: Intrauterine at 37w4 GBS negative RH positive POSTPROCEDURE DIAGNOSIS: Intrauterine at 37w4d, delivered Same as preprocedure [place] Baby 1: Infant gender: Female Presentation: vertex Position: Left Occiput Anterior Placenta delivery description: Spontaneous Cord Vessel Description: 3 Vessels score (1 min): 9 score (5 min): 9 weight: 5 lb 15.275 oz Plan for aftercare: Routine care
[2023-11-14] MEDS: DERMOPLAST SPRAY 20% 60 ML 1 SPRAY TOP (14:49)
[2023-11-14] MEDS: ACETAMINOPHEN 325 MG TABLET 650 MG PO ×2 (14:49→21:14)
[2023-11-14] MEDS: OXYCODONE IR 5 MG TABLET PO ×2 (17:10→21:15)
[2023-11-15] MEDS: ACETAMINOPHEN 325 MG TABLET 650 MG PO ×2 (03:27→10:11)
[2023-11-15] MEDS: OXYCODONE IR 5 MG TABLET PO ×2 (03:27→10:11)
[2023-11-15] MEDS: DOCUSATE 100 MG CAPSULE PO (10:11)
[2023-11-15] MEDS: PRENATAL VIT,CALC/IRON/FOLIC 1 TABLET 1 TAB PO (10:11)
--- NOTE | 2023-11-15 11:06 | P.DS_ITS ---
Discharge Providers Provider Date of admission: 11/13/23 08:21 Discharge Date: 11/15/23 Primary care physician: Lashawn Taveras MD Consults: 11/13/23 10:50 Consult to Anesthesiology Urgent Comment: Consulting Provider: Anesthesiologist Reason for consultation: Epidural 11/15/23 12:40 Consult to Client Technical Specialist Routine Comment: Discharge provider: Lashawn Taveras MD Summary Hospital Course Date Patient Seen: 11/15/23 Diagnoses: Intrauterine at 37w4 GBS negative RH positive Hospital Course: The pt presented with PROM at home. After 12hrs, pitocin was initiated. The pt used natural methods for pain control. She progressed to complete and had an of a viable baby girl without complications. A left labial laceration was repaired. , there were no complications. At the time of discharge she was voiding, ambulating, and passing flatus without difficulty. Her lochia was decreasing appropriately. Her pain was well controlled. She will f/u in 6 weeks for check. She was with good latch. She would like natural methods for contraception. Peripartum Data Infant Delivery Method: Natural Vaginal Laceration Description: Labial Episiotomy description: None Procedures: Spontaneous vaginal delivery complications: none 1: Gender: Female Disposition of : home Status at Discharge Cognitive/behavioral status at discharge: oriented Functional status at discharge: independent ambulation Overall status at discharge: patient is progressing back to baseline Time Spent with Patient Time attestation: Total time spent providing and/or coordinating discharge services: Objective Labs 11/13/23 10:15 Exam Narrative Exam Narrative: Gen: NAD, sitting comfortably in bed, appears well CV: RRR, no murmurs Resp: clear to auscultation bilaterally Abd: soft, appropriately tender, fundus firm and below the umbilicus, nondistended Ext: no edema Discharge Plan Discharge Plan Patient Disposition: Home Discharge orders & Medications Prescriptions: New acetaminophen 325 mg Tablet 650 mg PO Q6HR PRN (Reason: Pain, Mild (1-3)) Qty: 30 0RF docusate sodium 100 mg Capsule 100 mg PO DAILY Qty: 30 0RF ibuprofen 600 mg Tablet 600 mg PO Q6HR PRN (Reason: Pain, Mild (1-3)) Qty: 30 0RF Continued vit-ferrous sulfat-FA 27 mg iron- 0.8 mg tablet PO cholecalciferol (vitamin D3) 25 mcg (1,000 unit) capsule 25 mcg PO DAILY mecobalamin (vitamin B12) 1,000 mcg lozenge 1,000 mcg PO DAILY Rx Instructions: allow to dissolve in mouth OR may chew lightly before swallowing Follow up/Referrals: Lashawn Taveras MD [Primary Care Provider] - 6 Weeks Diet/Activity/Treatments Diet: Diet as Tolerated and Regular Skin/Wound/Dressing Care Report to your healthcare provider any signs of infection, such as:: chills, fever, increased pain and unusual drainage Visit Report/Discharge Packet Instructions: DI for Labor and Delivery, Vaginal Stand Alone Forms: Patient Portal/API, Stroke Signs & Symptoms Discharge Data Primary Care Provider: Lashawn Taveras
[2023-11-15 16:10] VITALS: BP 138/77; PULSE 109; RESP 16; TEMP 36.9
== END 2023-11-15 16:45 | disposition home or self-care (01) | DRG 807 ==
PROVIDERS: Admitting Provider Obstetrics & Gynecology; PCP Family Medicine; Referring Provider Obstetrics & Gynecology; Visit Provider Obstetrics & Gynecology
DX: O63.0 Prolonged first stage (of labor) (principal); Z37.0 Single live birth; Z67.40 Type O blood, Rh positive; Z3A.37 37 weeks gestation of pregnancy; O70.0 First degree perineal laceration during delivery
CPT/HCPCS: 36415; 59050; 59400; 84112; 85025; 86850; 86900; 86901; G0379; J2590; J3010

== ENCOUNTER → 2023-12-27 16:01 | Outpatient (CLI) | payer OTHER, SELFPAY | PROVIDERS: PCP Family Medicine; Visit Provider Family Medicine | DX: N76.0 Acute vaginitis (principal) | CPT/HCPCS: 87086 ==

== ENCOUNTER → 2025-08-24 13:43 | Outpatient (CLI) | payer OTHER, MEDICAID, SELFPAY ==
--- NOTE | 2025-08-24 13:45 | DI.US.S_ITS ---
PROCEDURE: US OB >= 14 WEEKS FETUS INDICATIONS: anatomy OUTSIDE/PRIOR DATING DATA: Last menstrual period (LMP): 04/05/2025. LMP-based estimated date of delivery (MALCOM): 01/10/2026. First dating scan (date and location): 06/20/2025. Estimated date of delivery (MALCOM) from first dating scan: 01/08/2026. The calculations are made using the clinical MALCOM of 01/10/2026. TECHNIQUE: Real-time scanning was performed of the fetus, with image documentation and biometric measurements. Endovaginal scanning: Not performed COMPARISON: [facility], OB >= 14 WEEKS FETUS, 07/02/2023, 12:21. FINDINGS: General: A single living intrauterine gestation is present. Presentation: Breech. Placenta: Placental position is posterior , without previa. Amniotic fluid index: 15.1 cm, normal range is 5-24 cm. Single deepest vertical pocket is 6.2 cm. heart rate: 168 beats per minute. Maternal cervical canal: 4.1 cm long. Normal lower limit is 2.5 cm. biometrics: Biparietal diameter: 4.8 cm, 20 weeks 3 days Head circumference: 18.3 cm, 20 weeks 5 days Abdominal circumference: 16.5 cm, 21 weeks 4 days Femur length: 3.4 cm, 20 weeks 6 days Clinically estimated gestational age: 20 weeks 1 day Composite gestational age from present scan: 20 weeks 6 days Estimated weight and percentile: 400 g, 92 percentile Anatomic survey: Neuro: Ventricles are non-dilated at less than 10 mm. Cisterna magna is normal at 3-11 mm. Cerebellum is normal in size and morphology. Nuchal skin fold: Normal at less than 6 mm between 14-21 weeks gestational age. Face: Nose and lips, facial profile are normal. Spine: No evidence for spina bifida. Heart: Not well visualized Diaphragm: Diaphragm is intact. Stomach: Left-sided stomach is present. Kidneys: No hydronephrosis. Normal is less than 5 mm in 2nd trimester, less than 7 mm in 3rd trimester. Cord: 3-vessel cord has orthotopic insertion. Bladder: Normal in size. Extremities: All 4 extremities identified. A couple of benign intrauterine fibroids are present. These include an intramural fibroid in the right lower quadrant measuring 1.6 x 1.0 x 0.7 cm, and in the mid right uterus measuring 1.7 x 2.2 x 0.8 cm. IMPRESSION: Single living intrauterine at 20 weeks 1 day, MALCOM of 01/10/2026. Estimated weight of 400 g, 92 percentile. Cardiac structures not well visualized. Short-term follow-up is indicated. We strive to produce accurate, complete, and clear reports of imaging services. To assist us in improving patient care, this report was composed using standard report templates and voice recognition software. Therefore, it may contain abnormal punctuation, insertions and/or omissions. Occasional wrong-word or sound-alike substitutions may occur. Though we review the report and make efforts to correct it, we do recommend that the report be read carefully in proper context to recognize any text inaccuracies. Dictated by: Landen Magana M.D. on 08/25/2025 at 10:10 Approved by: Landen Magana M.D. on 08/25/2025 at 10:14
== END ==
LOC: US 13:45
PROVIDERS: PCP Family Medicine; Referring Provider Family Medicine; Visit Provider Family Medicine
DX: Z34.82 Encounter for supervision of other normal pregnancy, second trimester (principal); Z3A.20 20 weeks gestation of pregnancy; D25.1 Intramural leiomyoma of uterus
CPT/HCPCS: 76811

== ENCOUNTER → 2025-08-27 14:20 | Outpatient (CLI) | payer OTHER, MEDICAID, SELFPAY ==
[2025-08-27 14:51] LABS: Add Manual Diff / Slide Review NO; Hematocrit 37.1 % (36-46); Hemoglobin 12.8 g/dL (12.0-16.0); Lymphocytes Absolute Auto 2000 /uL (1100-4500); Mean Corpuscular HGB Conc 34.4 % (30-36); Mean Corpuscular Hemoglobin 29.2 PG (26-34); Mean Corpuscular Volume 84.7 fL (80-100); Platelet Count 251 X10^3/uL (150-400)
[2025-08-27 15:39] LABS: Hemoglobin A1C% w Est Avg Glu 4.7 % (4.0-6.0)
[2025-08-27 15:53] LABS: Glucose 85 mg/dL (70-99)
[2025-08-28 15:26] LABS: Hepatitis B Surface Antigen NEGATIVE s/c (NEGATIVE)
[2025-08-28 15:42] LABS: HIV 1 & 2 Ab/Ag 4th Gen Combo NEGATIVE (NEGATIVE); Hep C Virus Ab w/Reflex Quant NEGATIVE s/c (NEGATIVE)
== END ==
PROVIDERS: PCP Family Medicine; Referring Provider Family Medicine; Visit Provider Family Medicine
DX: Z34.80 Encounter for supervision of other normal pregnancy, unspecified trimester (principal)
CPT/HCPCS: 36415; 80055; 82947; 83036; 86787; 86803; 86850; 86900; 86901; 87389

== ENCOUNTER → 2025-09-07 07:17 | Outpatient (CLI) | payer OTHER, MEDICAID, SELFPAY ==
--- NOTE | 2025-09-07 07:18 | DI.US.S_ITS ---
PROCEDURE: US OB >= 14 WEEKS FETUS INDICATIONS: RE-EVAL HEART OUTSIDE/PRIOR DATING DATA: Last menstrual period (LMP): 04/05/2025. LMP-based estimated date of delivery (MALCOM): 01/10/2026. First dating scan (date and location): 06/20/2025. Estimated date of delivery (MALCOM) from first dating scan: 01/08/2026. The calculations are made using the LMP MALCOM of 01/10/2026. TECHNIQUE: Real-time scanning was performed of the fetus, with image documentation and biometric measurements. Endovaginal scanning: Not applicable COMPARISON: [facility], , OB >= 14 WEEKS FETUS, 08/24/2025, 14:04. FINDINGS: General: A single living intrauterine gestation is present. Presentation: Vertex. Placenta: Placental position is posterior , without previa. Amniotic fluid index: 16.9 cm, normal range is 5-24 cm. Single deepest vertical pocket is 5.5 cm. heart rate: 162 beats per minute. Maternal cervical canal: 3.1 cm long. Anatomic survey: Heart: 4-chambered heart is present, with normal ventricular outflow tracts. IMPRESSION: Single living intrauterine at 22 weeks 1 day, MALCOM of 01/10/2026. Normal four-chamber heart and ventricular outflow tracts. We strive to produce accurate, complete, and clear reports of imaging services. To assist us in improving patient care, this report was composed using standard report templates and voice recognition software. Therefore, it may contain abnormal punctuation, insertions and/or omissions. Occasional wrong-word or sound-alike substitutions may occur. Though we review the report and make efforts to correct it, we do recommend that the report be read carefully in proper context to recognize any text inaccuracies. Dictated by: Ilya Vazquez M.D. on 09/07/2025 at 8:51 Approved by: Ilya Vazquez M.D. on 09/07/2025 at 9:00
== END ==
LOC: US 07:18
PROVIDERS: PCP Family Medicine; Referring Provider Family Medicine; Visit Provider Family Medicine
DX: Z34.82 Encounter for supervision of other normal pregnancy, second trimester (principal); Z3A.22 22 weeks gestation of pregnancy
CPT/HCPCS: 76811